=== PATIENT | female | born 1940 | race Caucasian/White ===

== ENCOUNTER 2019-12-31 08:25 | Outpatient (CLI) | payer MEDICARE ==
--- NOTE | 2019-12-31 09:34 | CT ---
EXAM: CT Abdomen Pelvis W Con PROVIDED CLINICAL HISTORY: Epigastric pain COMPARISON: 07/12/2017 FINDINGS: The visualized lung bases are free of significant opacity. There is a sub-4 mm noncalcified left lowe r lobe nodular density. Small hiatal hernia. There is a subtle low density mass present in the region of the pancreatic body, with dilatation of t he pancreatic duct distal to this measuring up to 6 mm. This mass measures at least 1.6 cm in greatest transverse dimension. There is atrophy of the pancreatic body and tail distal to this area o f hypodensity. The liver, spleen, kidneys and adrenal glands demonstrateate an unremarkable CT appearance. There is a small amount of free pelvic fluid. Sigmoid colonic diverticulosis is demonstrated. There a re prominent by number but not pathologically enlarged lymph nodes noted within the sigmoid colonic mesentery. Mural thickening is noted involving the sigmoid colon in its mid to distal portion. There is no evidence for bowel obstruction. No regional lymph node enlargement is evident. Vascular c alcification is noted. The osseous structures demonstrate no concerning lytic or blastic lesions. IMPRESSION: 1. At least 1.6 cm pancreatic body mass with associated distal pancreatic ductal dilatation and pancr eatic atrophy. Pancreatic adenocarcinoma is of primary concern. 2. Mural thickening involving the sigmoid colon with prominent by number sigmoid colonic mesenteric l ymph nodes and trace free pelvic fluid. Sigmoid neoplasm is not excluded.
== END 2019-12-31 08:26 | disposition home or self-care (01) ==
LOC: NAV CT 08:25
PROVIDERS: ATTEND Internal Medicine
DX: K58.2 Mixed irritable bowel syndrome (principal); K21.9 Gastro-esophageal reflux disease without esophagitis; K86.89 Other specified diseases of pancreas; K63.89 Other specified diseases of intestine
CPT/HCPCS: 74177